=== PATIENT | female | born 1985 | race Hispanic/Latino ===

== ENCOUNTER 2022-07-07 17:53 | Emergency (ER) | payer OTHER ==
[~2022-07-07] VITALS: Ht 162.6 cm; Wt 62.1 kg
[2022-07-07 18:02] VITALS: BP 124/76
[2022-07-07] MEDS ORDERED: DiphenhydrAMINE HCL 50 MG/ML VIAL IV ONE (20:00)
[2022-07-07] MEDS ORDERED: PROCHLORPERAZINE 10MG/2ML INJ IV ONE (20:00)
[2022-07-07] MEDS ORDERED: PROC5TAB54 PO (21:02)
== END 2022-07-07 21:21 | disposition home or self-care (01) ==
LOC: EDH 17:53
DX: G43.909 Migraine, unspecified, not intractable, without status migrainosus (principal)
CPT/HCPCS: 99285; 96374; 70450; 96375; J1200; J0780